=== PATIENT | female | born 1965 | race Caucasian/White ===

== ENCOUNTER 2024-10-21 12:32 | Emergency (ER) | payer OTHER, SELFPAY ==
[2024-10-21 12:42] VITALS: BP 99/70
[2024-10-21 13:55] VITALS: BP 121/69
--- NOTE | 2024-10-21 13:55 | ED.GENMED ---
History of Present Illness
<Milton Banegas MD, Resident - Last Filed: 10/22/24 14:03>
General
Chief Complaint: Flank Pain
Source: patient
Exam Limitations: none
Time Seen by Provider: 10/21/24 13:40
History of Present Illness
History of Present Illness:
This is a 59-year-old female with history of diabetes, hypothyroidism, hyperlipidemia, anxiety/depression, bipolar disorder, some memory dysfunction presenting in the emergency department with complaints of not feeling well. She reports that last
week she had urinary symptoms including burning urination and urgency and she also experienced some low-grade fever with chills, she visited urgent care where they diagnosed her with a UTI and prescribed nitrofurantoin for 5 days. She has been
compliant with medication and her urinary symptoms including burning, urgency, chills resolved. She is on day 3 of antibiotics, today when she woke up she developed mild left flank pain and felt lightheaded which prompted her to visit the emergency
department. She believes that she has infection in her left kidney.
Denies any recent sick contacts. Denies any recent travel. Denies any fever, shortness of breath, visual changes, headache, weakness or any GI symptoms.
Past History
<Milton Banegas MD, Resident - Last Filed: 10/22/24 14:03>
Past History
ED Past Medical History: Hypercholesterolemia, NIDDM, Hypothyroidism, Psychiatric (anxiety, depression, bipolar,) and Other (alcoholism )
ED Past Surgical History: Appendectomy and Other (LEEP)
Patient has exhibited threatening behavior?: No
Social History
Tobacco: Smoker
Alcohol: Daily
Living: with family
Employment: Employed
Family History
Family History: Other (Noncontributory)
Review of Systems
<Milton Banegas MD, Resident - Last Filed: 10/22/24 14:03>
Review of Systems
Allergies reviewed?: Yes
Constitutional: Reports chills; Denies fever
EENT: Denies sore throat or runny nose
Respiratory: Denies cough or trouble breathing
Cardiac: Denies chest pain
ABD/GI: Denies abdominal pain, nausea or diarrhea
: Reports flank pain; Denies dysuria, frequency or difficulty voiding
Musculoskeletal: Denies joint pain or joint swelling
Skin: Denies itching
Neurological: Denies dizzy
Endocrine: Denies polyuria
Phy Exam
<Milton Banegas MD, Resident - Last Filed: 10/22/24 14:03>
General Physical Exam
General Presentation: well appearing and no apparent distress
General age: appears stated age
General Skin: warm
General Habitus: normal
General Mental: alert
General Hydration: appears well hydrated
Cardiovascular Exam
Cardiovascular Exam: regular rate/rhythm and no murmur
Pulmonary Exam
Pulmonary Exam: lungs clear, no respiratory distress and no cough
Gastrointestinal Exam
Gastrointestinal Exam: soft, non distended and cva tenderness (Left)
Neurological Exam
Neurological Exam: alert, oriented x3, no motor deficits and no sensory deficits
Musculoskeletal Exam
Musculoskeletal Exam: full ROM
Psychiatric Exam
Psychiatric Exam: normal mood/affect
Course
<Milton Banegas MD, Resident - Last Filed: 10/22/24 14:03>
Orders/Labs/Results
Orders:
Orders
10/21/24 13:56
Complete Blood Count/With Diff Urgent
Comprehensive Metabolic Panel Urgent
10/21/24 14:26
CT Abd/pel Without Iv Or Oral Urgent
Comment:
Reason For Exam: L flank pain, recent UTI
10/21/24 14:41
Ketorolac [Toradol] 15 mg IV NOW STA
10/21/24 16:17
0.9% Sodium Chloride 500 ml [Nss] 500 ml IV BOLUS
10/21/24 16:42
Urinalysis Reflex To Culture Urgent
Date Specimen was Collected: 10/21/24
Time Specimen was Collected: 16:41
Urine Microscopic Reflex Cult Urgent
Urine Culture Urgent
MORGAN Source: U
Specimen Description:
Date Specimen was Collected: 10/21/24
Time Specimen was Collected: 16:41
10/21/24 17:54
Sulfamethox./Trimethoprim Ds [Bactrim Ds 800 mg/160 mg] 1 tablet PO NOW STA
Abnormal Lab Results
10/21/24 10/21/24
13:56 16:42
Hgb 11.4 L g/dL
(12.0-16.0)
Hct 34.6 L %
(37.0-47.0)
MCV 77.9 L fL
(81.0-99.0)
MCH 25.7 L pg
(27.0-31.0)
MCHC 32.9 L g/dL
(33.0-37.0)
RDW 14.6 H %
(11.5-14.5)
BUN 20 H mg/dl
(7-17)
Creatinine 0.5 L mg/dL
(0.6-1.0)
Glucose 121 H mg/dl
(70-99)
Leukocyte Esterase Rfl 1+ A
(Negative)
Urine WBC (Reflex) 40-50 A /HPF
(0-5)
Urine Bacteria (Reflex) Few A
(Negative)
10/21/24 13:56
10/21/24 13:56
Vital Signs
Initial and Last Documented VS:
Initial Vital Signs
Temp Pulse Resp BP Pulse Ox
97.8 F 102 20 99/70 97
10/21/24 12:42 10/21/24 12:42 10/21/24 12:42 10/21/24 12:42 10/21/24 12:42
Last Documented Vital Signs
Temp Pulse Resp BP Pulse Ox
97.8 F 68 16 150/78 99
10/21/24 12:42 10/21/24 18:04 10/21/24 18:04 10/21/24 18:04 10/21/24 18:04
<Ericka Ramos DO - Last Filed: 10/24/24 08:00>
Orders/Labs/Results
Orders:
Orders
10/21/24 13:56
Complete Blood Count/With Diff Urgent
Comprehensive Metabolic Panel Urgent
10/21/24 14:26
CT Abd/pel Without Iv Or Oral Urgent
Comment:
Reason For Exam: L flank pain, recent UTI
10/21/24 14:41
Ketorolac [Toradol] 15 mg IV NOW STA
10/21/24 16:17
0.9% Sodium Chloride 500 ml [Nss] 500 ml IV BOLUS
10/21/24 16:42
Urinalysis Reflex To Culture Urgent
Date Specimen was Collected: 10/21/24
Time Specimen was Collected: 16:41
Urine Microscopic Reflex Cult Urgent
Urine Culture Urgent
MORGAN Source: U
Specimen Description:
Date Specimen was Collected: 10/21/24
Time Specimen was Collected: 16:41
10/21/24 17:54
Sulfamethox./Trimethoprim Ds [Bactrim Ds 800 mg/160 mg] 1 tablet PO NOW STA
Abnormal Lab Results
10/21/24 10/21/24
13:56 16:42
Hgb 11.4 L g/dL
(12.0-16.0)
Hct 34.6 L %
(37.0-47.0)
MCV 77.9 L fL
(81.0-99.0)
MCH 25.7 L pg
(27.0-31.0)
MCHC 32.9 L g/dL
(33.0-37.0)
RDW 14.6 H %
(11.5-14.5)
BUN 20 H mg/dl
(7-17)
Creatinine 0.5 L mg/dL
(0.6-1.0)
Glucose 121 H mg/dl
(70-99)
Leukocyte Esterase Rfl 1+ A
(Negative)
Urine WBC (Reflex) 40-50 A /HPF
(0-5)
Urine Bacteria (Reflex) Few A
(Negative)
10/21/24 13:56
10/21/24 13:56
Vital Signs
Initial and Last Documented VS:
Initial Vital Signs
Temp Pulse Resp BP Pulse Ox
97.8 F 102 20 99/70 97
10/21/24 12:42 10/21/24 12:42 10/21/24 12:42 10/21/24 12:42 10/21/24 12:42
Last Documented Vital Signs
Temp Pulse Resp BP Pulse Ox
97.8 F 68 16 150/78 99
10/21/24 12:42 10/21/24 18:04 10/21/24 18:04 10/21/24 18:04 10/21/24 18:04
<Milton Banegas MD, Resident - Last Filed: 10/22/24 14:03>
MDM/Problems Addressed
Differential Diagnosis Includes:
UTI/pyelonephritis vs muscular vs kidney stone vs unlikely colitis
MDM/Problems Addressed:
Check CBC, CMP, UA
Check ct abd/p without contrast.
CBC with hemoglobin of 11.4 which seems out of baseline, CMP with BUN of 20, creatinine 0.5, glucose of 121 otherwise unremarkable.
give IV Toradol 15 mg for pain
see attending note for additional updates
<Milton Banegas MD, Resident - Last Filed: 10/22/24 14:03>
*Pulse Oximetry
SaO2: 97
Oxygen Mode of Delivery: Room air
Patient hypoxic: no
*Critical Care Note
Total Time (30-74mins, 75-104mins- exclusive of procedures): Not Applicable
ED Attending Note
<Milton Banegas MD, Resident - Last Filed: 10/22/24 14:03>
-
Portions of this chart may have been created with voice recognition software.� Occasional wrong word or��sound alike� substitutions may have occurred due to the inherent limitations of voice recognition software.
<Ericka Ramos, DO - Last Filed: 10/24/24 08:00>
ED Attending Note
Patient seen and examined by attending physician: Yes
I performed the substantive portion of visit, reviewed & personally made and approve the management plan that is documented in note by myself or ROSE.: Yes
I performed a history and physical exam of patient and discussed management with resident, I reviewed resident's note and agree with documented findings and plan of care.: Yes
ED Attending Note:
59-year-old female presents to the ER for further evaluation of feeling generally unwell after having been on antibiotics for the past 2 days for lower urinary tract symptoms. Patient states that the dysuria has improved somewhat, however now she
feels generally fatigued along with left-sided flank pain. She denies fever. No vomiting. She does have a prior history of frequent urinary tract infections. She has been on Macrobid as prescribed by urgent care, urine culture pending. Vital
signs reviewed, patient is awake, alert, appears no acute distress, mucous membranes tacky, abdomen is soft and nontender on palpation, GCS is 15. Given failure to improve on current therapy, screening labs and CT scan are ordered to rule out
complicated infection. CT scan does not show any obstructive pathology, however evidence of bilateral pyelonephritis. White blood count reassuring. Vital signs stable. Patient feeling better after 1 L IV fluids. I discussed with patient very
reassuring workup in the ER along with plan for change in antibiotics and close outpatient follow-up. Patient states that she has not tolerated fluoroquinolones well in the past, will initiate Bactrim. Patient expressed understanding of strict
return precautions and had no questions prior to leaving the department
Discharge Plan
Departure
Patient Disposition: Home (Routine Discharge)
Date of Disposition: 10/21/24
Time of Disposition: 17:55
Patient with high blood pressure during this ER visit?: No
Discharge Problem:
Pyelonephritis
Instructions: Urinary tract infection - Discharge instructions
Prescriptions:
New
sulfamethoxazole-trimethoprim 800-160 mg tablet
1 tab PO BID 14 Days Qty: 27 0RF
No Action
simvastatin 40 MG tablet
40 mg PO QPM
Effexor XR
150 mg PO DAILY
Patient Comments:
TAKES 150 MG PLUS 75 MG CAPSULE
levothyroxine [Synthroid] 25 MCG tablet
25 mcg PO DAILY
iloperidone [Fanapt] 1 MG tablet
4 mg PO BID
venlafaxine 37.5 MG tablet
37.5 mg PO DAILY
metformin 500 MG tablet extended release 24 hr
500 mg PO BID
Referrals:
Brenda Cat MD [Family Provider, Internal Medicine]
Activity Restrictions/Additional Instructions:
Complete course of antibiotics as prescribed. If you are not feeling significantly better in 36 hours please return to the ER for further evaluation and treatment. Encourage fluids. Please follow-up with your family physician later this week for
reevaluation and further care. Return to the ER for any concerns
Interventions
Interventions:
*Risk Screen - Suicide Last Done: 10/21/24 12:42
*General Assessment Last Done: 10/21/24 12:42
*Neglect/Abuse Screening Last Done: 10/21/24 13:58
*ED- Fall Risk Assessment Last Done: 10/21/24 13:58
*ED COVID-19 Vaccine History Last Done: 10/21/24 13:58
*Nursing Disposition Last Done: 10/21/24 18:08
CT-Plogri-Piuuplhvoi Assessment Last Done: 10/21/24 13:58
ED-Female Genitourinary Assessment Last Done: 10/21/24 13:58
Discharge Date and Time
Discharge Date/Time: 10/21/24 18:10
Print Language: KOSOVAN
[2024-10-21 14:04] LABS: Hematocrit 34.6 % (37.0-47.0); Hemoglobin 11.4 g/dL (12.0-16.0); Mean Corp Hgb Conc. 32.9 g/dL (33.0-37.0); Mean Corpuscular Volume 77.9 fL (81.0-99.0); Nucleated Red Blood Cells % 0 %; Platelet Count 178 10^3/uL (130-400); Red Cell Dist. Width 14.6 % (11.5-14.5)
[2024-10-21 14:24] LABS: AST (SGOT) 21 U/L (14-36); Carbon Dioxide 22 mmol/L (22-30)
[2024-10-21 14:35] LABS: ALT (SGPT) 17 U/L (0-35); Albumin 4.3 g/dl (3.5-5.0); Alkaline Phosphatase 38 U/L (38-126); Blood Urea Nitrogen 20 mg/dl (7-17); Calcium 9.8 mg/dl (8.4-10.2); Chloride 103 mmol/L (98-107); Glucose 121 mg/dl (70-99); Potassium 4.9 mmol/L (3.5-5.1); Sodium 136 mmol/L (135-145); Total Protein 7.3 g/dl (6.3-8.2); eGFR > 60.00
[2024-10-21] MEDS: TORADOL 15 MG IV (15:02)
[2024-10-21 16:06] VITALS: BP 125/71
[2024-10-21] MEDS: NSS 500 IV (16:39)
[2024-10-21 17:30] LABS: Urine Character Clear (Clear)
[2024-10-21] MEDS: BACTRIM DS 800 MG/160 MG 1 TABLET PO (18:02)
[2024-10-21 18:04] VITALS: BP 150/78
[2024-10-21 18:07] LABS: Urine Red Blood Cell 0-2 /HPF (0-2); Urine Squamous Cell >30 /LPF (Few); Urine White Cell 40-50 /HPF (0-5)
== END 2024-10-21 18:10 | disposition home or self-care (01) ==
LOC: EMR 12:32
PROVIDERS: EMERGENCY PHYSICIAN Emergency Medicine; FAMILY PHYSICIAN Emergency Medicine
DX: N12 Tubulo-interstitial nephritis, not specified as acute or chronic (principal); E03.9 Hypothyroidism, unspecified; E11.9 Type 2 diabetes mellitus without complications; E78.00 Pure hypercholesterolemia, unspecified; F17.200 Nicotine dependence, unspecified, uncomplicated; Z90.49 Acquired absence of other specified parts of digestive tract
CPT/HCPCS: 96374; 96361; 99284; 74176; 80053; 81003; 81015; 85025; 87086

== ENCOUNTER → 2025-02-24 12:57 | Outpatient (REF) | payer OTHER, SELFPAY | LOC: RCS 12:57 | PROVIDERS: ATTENDING PHYSICIAN Nurse Practitioner Family; FAMILY PHYSICIAN Nurse Practitioner Family | DX: R00.0 Tachycardia, unspecified (principal) | CPT/HCPCS: 93225; 93226 ==